=== PATIENT | female | born 1960 ===

== ENCOUNTER 2018-06-27 07:53 | Inpatient (IN) | payer MEDICAID ==
[2018-06-27 07:53] VITALS: BMI 25.8
--- NOTE | 2018-06-27 08:36 | C.PDOC ---
History Of Present Illness 57 y/o female,w/PMhx of MS, presents to the ER complaining of generalized weakness. Patient states that she has "no strength in legs." Patient reports that she was evaluated by her neurologist . Dr. Adler referred her to the ER for further evaluation. Denies having fever, chills, CP, and SOB. Time Seen by Provider: 06/27/18 08:20 Chief Complaint (Nursing): Lower Extremity Problem/Injury History Per: Patient History/Exam Limitations: no limitations Onset/Duration Of Symptoms: Days Current Symptoms Are (Timing): Still Present Severity: Moderate Past Medical History Reviewed: Historical Data, Nursing Documentation, Vital Signs Vital Signs: Last Vital Signs Temp 98.2 F 06/27/18 08:06 Pulse 79 06/27/18 08:06 Resp 18 06/27/18 08:06 BP 127/82 06/27/18 08:06 Pulse Ox 100 06/27/18 08:06 - Medical History PMH: Anemia, Gastritis, Hypercholesterolemia, Hypothyroidism, Multiple Sclerosis, TIA Denies: HIV, Chronic Kidney Disease Surgical History: Cholecystectomy Family History: States: No Known Family Hx - Social History Hx Alcohol Use: No Hx Substance Use: No - Immunization History Hx Tetanus Toxoid Vaccination: No Hx Influenza Vaccination: Yes Hx Pneumococcal Vaccination: No Review Of Systems Except As Marked, All Systems Reviewed And Found Negative. Constitutional: Positive for: Weakness. Negative for: Fever, Chills Cardiovascular: Negative for: Chest Pain Respiratory: Negative for: Shortness of Breath Neurological: Negative for: Numbness Physical Exam - Physical Exam Appears: Non-toxic, No Acute Distress Skin: Normal Color, Warm, Dry Head: Atraumatic, Normacephalic Eye(s): bilateral: Normal Inspection Nose: Normal Oral Mucosa: Moist Neck: Supple Chest: Symmetrical Cardiovascular: Rhythm Regular Respiratory: Normal Breath Sounds, No Rales, No Rhonchi, No Wheezing Gastrointestinal/Abdominal: Soft, No Tenderness, No Guarding, No Rebound Extremity: Normal ROM Neurological/Psych: Oriented x3, Normal Speech, Normal Motor, Normal Sensation ED Course And Treatment - Laboratory Results Result Diagrams: 06/27/18 08:44 06/27/18 08:44 O2 Sat by Pulse Oximetry: 100 (RA) Pulse Ox Interpretation: Normal Medical Decision Making Medical Decision Making: ro ms exacerbatio Plan: --Labs Updates: 8:30 AM Case discussed with . recommends ordering LP, MRI Brain and MRI- Cervical Thoracic Spine with and without contrast.accepted by dr posada. Disposition - Disposition Disposition: HOSPITALIZED Disposition Time: 11:45 Condition: STABLE - Clinical Impression Clinical Impression: Exacerbation of multiple sclerosis - Scribe Statement The provider has reviewed the documentation as recorded by the Scribe Cecilia Can Provider Attestation: All medical record entries made by the Scribe were at my direction and personally dictated by me. I have reviewed the chart and agree that the record accurately reflects my personal performance of the history, physical exam, medical decision making, and the department course for this patient. I have also personally directed, reviewed, and agree with the discharge instructions and disposition. Decision To Admit - Pt Status Changed To: Hospital Disposition Of: Inpatient - Admit Certification Admit to Inpatient:: After my assessment, the patient will require hospitalization for at least two midnights. This is because of the severity of symptoms shown, intensity of services needed, and/or the medical risk in this patient being treated as an outpatient. - InPatient: Physician Admission Certification: I certify that this patient requires 2 or more midnights of care for the following reason:: need neuro - . Bed Request Type: Telemetry Admitting Physician: Marichuy Saeed Patient Diagnosis: Exacerbation of multiple sclerosis
[2018-06-27 08:51] LABS: BASO % 0.4 % (0.0-2.0); EOS % 0.1 % (0.0-4.0); HEMOGLOBIN 13.8 g/dL (11.0-16.0); LYMPH # 0.4 K/uL (1.0-4.3); LYMPH % 12.1 % (20.0-40.0); MEAN CORPUSCULAR HGB CONC 33.7 g/dL (33.0-37.0); MEAN PLATELET VOLUME 8.1 fL (7.2-11.7); MONO # 0.4 K/uL (0.0-0.8); NEUT # 2.4 K/uL (1.8-7.0); NEUT % 75.4 % (50.0-75.0); NRBC % 0.1 % (0.0-2.0); RBC 4.3 Mil/uL (3.80-5.20); RED CELL DISTRIBUTION WIDTH 13.6 % (11.5-14.5); WHITE BLOOD COUNT 3.2 K/uL (4.8-10.8)
[2018-06-27 09:00] LABS: PROTHROMBIN TIME 10.9 SECONDS (9.7-12.2)
[2018-06-27 09:17] LABS: ALB/GLOB RATIO 1.6 (1.0-2.1); ALBUMIN 4.9 g/dL (3.5-5.0); ALT/SGPT 24 U/L (9-52); AST/SGOT 40 U/L (14-36); BLOOD UREA NITROGEN 9 mg/dL (7-17); CALCIUM 9.8 mg/dl (8.6-10.4); GFR NON-AFRICAN AMERICAN > 60
[2018-06-27] MEDS: Multiple Vitamins Oral Solution PO SCH (13:01)
[2018-06-27] MEDS ORDERED: Lidocaine 1% PF (5ml) Amp INJ ONE (15:11)
--- NOTE | 2018-06-27 15:22 | CP.PCM.CON ---
History of Present Illness - History of Present Illness History of Present Illness: Neurology Consultation Note: Consult requested by Dr. Saeed Mrs. Cherry Ortega is a 57-year-old woman who was previously diagnosed with Multiple Sclerosis and started on Tecfidera. She appears to be having some progressive fatigue and weakness, but no focal deficits. I saw her in the office for the first time yesterday and noted that she also had some difficulty with attention and memory. Review of Systems - Constitutional Constitutional: As Per HPI - EENT Eyes: absent: As Per HPI, Blind Spots, Blurred Vision, Change in Vision, Decreased Night Vision, Diplopia, Discharge, Dry Eye, Exophthalmos, Floaters, Irritation, Itchy Eyes, Loss of Peripheral Vision, Pain, Photophobia, Requires Corrective Lenses, Sees Flashes, Spots in Vision, Tunnel Vision, Other Visual Disturbances, Loss of Vision, Other Ears: absent: As Per HPI, Decreased Hearing, Ear Discharge, Ear Pain, Tinnitus, Abnormal Hearing, Disequilibrium, Dizziness, Other Nose/Mouth/Throat: absent: As Per HPI, Epistaxis, Nasal Congestion, Nasal Discharge, Nasal Obstruction, Nasal Trauma, Nose Pain, Post Nasal Drip, Sinus Pain, Sinus Pressure, Bleeding Gums, Change in Voice, Dental Pain, Dry Mouth, Dysphagia, Halitosis, Hoarsness, Lip Swelling, Mouth Lesions, Mouth Pain, Odynophagia, Sore Throat, Throat Swelling, Tongue Swelling, Facial Pain, Neck Pain, Neck Mass, Other - Cardiovascular Cardiovascular: absent: As Per HPI, Acrocyanosis, Chest Pain, Chest Pain at Rest, Chest Pain with Activity, Claudication, Diaphoresis, Dyspnea, Dyspnea on Exertion, Edema, Irregular Heart Rhythm, Pain Radiating to Arm/Neck/Jaw, Leg Edema, Leg Ulcers, Lightheadedness, Orthopnea, Palpitations, Paroxysmal Nocturnal Dyspnea, Pedal Edema, Radiating Pain, Rapid Heart Rate, Slow Heart Rate, Syncope, Other - Respiratory Respiratory: absent: As Per HPI, Cough, Dyspnea, Hemoptysis, Dyspnea on Exertion, Wheezing, Snoring, Stridor, Pain on Inspiration, Chest Congestion, Excessive Mucous Production, Change in Mucous Color, Pain with Coughing, Other - Gastrointestinal Gastrointestinal: absent: As Per HPI, Abdominal Pain, Belching, Bloating, Change in Bowel Habits, Change in Stool Character, Coffee Ground Emesis, Constipation, Cramping, Diarrhea, Dyspepsia, Dysphagia, Early Satiety, Excessive Flatus, Fecal Incontinence, Heartburn, Hematemesis, Hematochezia, Loose Stools, Melena, Nausea, Odynophagia, Temesmus, Vomiting, Other - Genitourinary Genitourinary: Urinary Incontinence - Musculoskeletal Musculoskeletal: As Per HPI - Integumentary Integumentary: absent: As Per HPI, Acne, Alopecia, Bleeding Lesions, Change in Hair, Change in Nails, Change in Pigmentation, Changing Lesions, Dry Skin, Erythema, Furuncle, Hirsutism, Lesions, New Lesions, Non-Healing Lesions, Photosensitivity, Pruritus, Rash, Skin Pain, Skin Ulcer, Sores, Striae, Swelling, Unusual Bruising, Wounds, Jaundice, Other - Neurological Neurological: As Per HPI - Psychiatric Psychiatric: absent: As Per HPI, Abnormal Sleep Pattern, Anhedonia, Anxiety, Auditory Hallucinations, Behavioral Changes, Change in Appetite, Change in Vanessa krystian, Confusion, Depression, Difficulty Concentrating, Hallucinations, Homicidal Ideation, Hopelessness, Irritability, Memory Loss, Mood Swings, Panic Attacks, Paranoia, Suicidal Ideation, Visual Hallucinations, Tactile Hallucinations, Other - Endocrine Endocrine: absent: As Per HPI, Change in Body Appearance, Change in Libido, Cold Intolorance, Deepening of Voice, Excessive Sweating, Fatigue, Flushing, Heat Intolorance, Increase in Ring/Shoe/Hat Size, Palpitations, Polydipsia, Polyphagia, Polyuria, Other - Hematologic/Lymphatic Hematologic: absent: As Per HPI, Easy Bleeding, Easy Bruising, Lymphadenopathy, Other Past Patient History - Past Medical History & Family History Past Medical History?: Yes - Past Social History Smoking Status: Never Smoked - CARDIAC Hx Hypercholesterolemia: Yes - PULMONARY Hx Respiratory Disorders: No - NEUROLOGICAL Hx Multiple Sclerosis: Yes Hx Transient Ischemic Attacks (TIA): Yes - HEENT Hx HEENT Problems: Yes Other/Comment: wears eye glasses - RENAL Hx Chronic Kidney Disease: No - ENDOCRINE/METABOLIC Hx Hypothyroidism: Yes - HEMATOLOGICAL/ONCOLOGICAL Hx Anemia: Yes Hx Human Immunodeficiency Virus (HIV): No - INTEGUMENTARY Hx Dermatological Problems: No - MUSCULOSKELETAL/RHEUMATOLOGICAL Hx Musculoskeletal Disorders: No Hx Falls: No - GASTROINTESTINAL Hx Gastritis: Yes - GENITOURINARY/GYNECOLOGICAL Hx Genitourinary Disorders: No - PSYCHIATRIC Hx Substance Use: No - SURGICAL HISTORY Hx Cholecystectomy: Yes - ANESTHESIA Hx Anesthesia: Yes Hx Anesthesia Reactions: No Hx Malignant Hyperthermia: No Meds Allergies/Adverse Reactions: Allergies Allergy/AdvReac Type Severity Reaction Status Date / Time No Known Allergies Allergy Verified 06/27/18 08:11 - Medications Medications: Current Medications Ascorbic Acid (Vitamin C 250 Mg Tab) 250 mg PO DAILY [facility] Last Admin: 06/27/18 13:01 Dose: Not Given Aspirin (Aspirin Chewable) 81 mg PO DAILY [facility] Last Admin: 06/27/18 13:01 Dose: Not Given Cyanocobalamin (Vitamin B12 1000 Mcg Tab) 1,000 mcg PO DAILY [facility] Last Admin: 06/27/18 13:01 Dose: Not Given Levothyroxine Sodium (Synthroid) 100 mcg PO DAILY@0630 [facility] Multivitamins/Vitamin C (Multi-Delyn Liquid) 5 ml PO DAILY [facility] Last Admin: 06/27/18 13:01 Dose: Not Given Physical Exam - Constitutional Appears: Well - Head Exam Head Exam: ATRAUMATIC, NORMAL INSPECTION, NORMOCEPHALIC - Eye Exam Eye Exam: EOMI, Normal appearance, PERRL Pupil Exam: NORMAL ACCOMODATION, PERRL - ENT Exam ENT Exam: Mucous Membranes Moist, Normal Exam - Neck Exam Neck exam: Positive for: Normal Inspection - Respiratory Exam Respiratory Exam: Clear to Auscultation Bilateral, NORMAL BREATHING PATTERN - Cardiovascular Exam Cardiovascular Exam: REGULAR RHYTHM, +S1, +S2 - GI/Abdominal Exam GI & Abdominal Exam: Normal Bowel Sounds, Soft. absent: Tenderness - Rectal Exam Rectal Exam: NORMAL INSPECTION - Exam Exam: Circumcision, NORMAL INSPECTION External exam: NORMAL EXTERNAL EXAM Speculum exam: NORMAL SPECULUM EXAM Bimanual exam: NORMAL BIMANUAL EXAM - Extremities Exam Extremities exam: Positive for: normal inspection - Back Exam Back exam: NORMAL INSPECTION - Neurological Exam Neurological exam: Abnormal Gait, Alert, CN II-XII Intact, Oriented x3, Reflexes Normal Additional comments: Attention is slightly impaired. Memory is intact. Trunkal ataxia noted, gait is wide-based. - Psychiatric Exam Psychiatric exam: Normal Affect, Normal Mood - Skin Skin Exam: Dry, Intact, Normal Color, Warm Results - Vital Signs Recent Vital Signs: Last Vital Signs Temp 97.3 F L 06/27/18 11:44 Pulse 62 06/27/18 11:44 Resp 20 06/27/18 11:44 BP 101/67 06/27/18 11:44 Pulse Ox 100 06/27/18 14:58 - Labs Result Diagrams: 06/27/18 08:44 06/27/18 08:44 Labs: Laboratory Results - last 24 hr 06/27/18 06/27/18 06/27/18 08:44 08:44 08:44 WBC 3.2 L RBC 4.30 Hgb 13.8 Hct 40.8 MCV 95.0 MCH 32.0 H MCHC 33.7 RDW 13.6 Plt Count 241 MPV 8.1 Neut % (Auto) 75.4 H Lymph % (Auto) 12.1 L [place] % (Auto) 12.0 H Eos % (Auto) 0.1 Baso % (Auto) 0.4 Neut # (Auto) 2.4 Lymph # (Auto) 0.4 L [place] # (Auto) 0.4 Eos # (Auto) 0.0 Baso # (Auto) 0.0 PT 10.9 INR 1.0 APTT 52 H Sodium 143 Potassium 4.5 Chloride 104 Carbon Dioxide 32 H Anion Gap 12 BUN 9 Creatinine 0.6 L Est GFR ( Amer) > 60 Est GFR (Non-Af Amer) > 60 Random Glucose 85 Calcium 9.8 Total Bilirubin 0.4 AST 40 H ALT 24 Alkaline Phosphatase 86 Total Protein 7.9 Albumin 4.9 Globulin 3.0 Albumin/Globulin Ratio 1.6 Assessment & Plan (1) Exacerbation of multiple sclerosis Assessment and Plan: Will obtain MRI of the brain and cervical spine with and without contrast to e valuate further prior to considering dose of Solumedrol. Will check CSF since the patient has never had a lumbar puncture before and she has never had evaluation for confirmatory testing. Thank you for this consultation. Status: Acute
[2018-06-27] MEDS ORDERED: Gadodiamide 287 mg/ml 20 ml IV ONE (17:58)
[2018-06-27 18:03] LABS: FLUID TYPE SPINAL FLUID
[2018-06-27 18:43] LABS: CSF VOLUME 2 mL (0-1)
[2018-06-27 18:44] LABS: CSF APPEARANCE CLEAR/COLORLESS (CLEAR)
[2018-06-28] MEDS: Levothyroxine 100 MCG TAB PO SCH (05:52)
[2018-06-28] MEDS: Multiple Vitamins Oral Solution PO SCH (10:14)
--- NOTE | 2018-06-28 11:49 | MRI ---
Date of service: 06/27/2018 PROCEDURE: MRI BRAIN WITH AND WITHOUT CONTRAST HISTORY: MS COMPARISON: None available. TECHNIQUE: Multiplanar, multisequence MR images of the brain were obtained with and without intravenous contrast enhancement. FINDINGS: HEMORRHAGE: None DWI: No evidence of an acute or early subacute infarction. BRAIN PARENCHYMA: Multiple bilateral cerebral long TR hyperintensities are rounder less than 1 cm size primarily, scattered at subcortical and periventricular white matter, primarily at the bilateral frontal and parietal lobes of the cerebrum with the brainstem and cerebellum uninvolved. Heterogeneous signal changes at the corpus callosum body and somewhat irregular callososeptal interface long TR hyperintensity are identified with the overall pattern concordant with clinical history of MS. No abnormal parenchymal enhancement is appreciated to suggest focal active plaque and there is no suspicious extra-axial enhancement identified. No mass effect or suspicious extra-axial collections identified and a dilated perivascular space identified in the inferior left basal ganglia. Craniocervical junction incidentally appears unremarkable. ENHANCEMENT: No abnormal intracranial enhancement. VENTRICLES: Unremarkable. No hydrocephalus. CRANIUM: Unremarkable. ORBITS: Grossly unremarkable. PARANASAL SINUSES/MASTOIDS: Clear VASCULAR SYSTEM: Skull base flow voids intact. OTHER FINDINGS: None . IMPRESSION: Multifocal white matter signal changes are appreciated which likely include the corpus callosum with clinical history of multiple sclerosis. If this diagnosis is not already proven, there is a very broad differential diagnosis and further clinical correlation is advised. No abnormal intracranial enhancement following intravenous gadolinium administration. Concordant preliminary report from [facility], 06/27/2018 6:55 p.m..
[2018-06-28] MEDS ORDERED: Sodium Chloride 0.9% 250 ML IV ONE (11:53)
[2018-06-28] MEDS ORDERED: Sodium Chloride 0.9% 500 ML IV ONE (12:13)
--- NOTE | 2018-06-28 12:20 | CP.PCM.PN ---
Subjective - Date & Time of Evaluation Date of Evaluation: 06/28/18 Time of Evaluation: 15:45 - Subjective Subjective: Neuro Follow-Up Note: Mrs. Cherry Pringle was evaluated this afternoon at bedside. She had episodes of bradycardia and hypotension today (she reports no associated symptoms). She also c/o persistent h/a that improved with Decadron IV and Depakote IV. She is eager to be d/c home. She is still pending MRIs of the spine with and without contrast as ordered by Dr. Adler yesterday. Currently denies dizziness, visual changes, chest pain, palpitations, sob, cough, abd pain, n/v/d. Objective - Vital Signs/Intake and Output Vital Signs (last 24 hours): Temp Pulse Resp BP Pulse Ox 97.8 F 68 20 99/52 L 96 06/28/18 08:47 06/28/18 08:47 06/28/18 08:47 06/28/18 08:47 06/28/18 08:47 Intake and Output: 06/28/18 06/28/18 06:59 18:59 Intake Total 200 Balance 200 - Medications Medications: Current Medications Acetaminophen (Tylenol 325mg Tab) 650 mg PO Q6 PRN PRN Reason: Headache Ascorbic Acid (Vitamin C 250 Mg Tab) 250 mg PO DAILY [facility] Last Admin: 06/28/18 10:14 Dose: 250 mg Aspirin (Aspirin Chewable) 81 mg PO DAILY [facility] Last Admin: 06/28/18 10:14 Dose: 81 mg Cyanocobalamin (Vitamin B12 1000 Mcg Tab) 1,000 mcg PO DAILY [facility] Last Admin: 06/28/18 10:14 Dose: 1,000 mcg Dexamethasone (Decadron Inj) 10 mg IVP ONCE ONE Stop: 06/28/18 12:17 Sodium Chloride (Sodium Chloride 0.9%) 500 mls @ 1,000 mls/hr IV .Q30M ONE Stop: 06/28/18 12:42 Levothyroxine Sodium (Synthroid) 100 mcg PO DAILY@0630 [facility] Last Admin: 06/28/18 05:52 Dose: 100 mcg Multivitamins/Vitamin C (Multi-Delyn Liquid) 5 ml PO DAILY [facility] Last Admin: 06/28/18 10:14 Dose: 5 ml - Labs Labs: 06/27/18 08:44 06/27/18 08:44 PT 10.9 SECONDS (9.7-12.2) 06/27/18 08:44 INR 1.0 06/27/18 08:44 APTT 52 SECONDS (21-34) H 06/27/18 08:44 - Constitutional Appears: Well, Non-toxic, No Acute Distress - Head Exam Head Exam: ATRAUMATIC, NORMAL INSPECTION, NORMOCEPHALIC - Eye Exam Eye Exam: EOMI, Normal appearance, PERRL Pupil Exam: NORMAL ACCOMODATION - ENT Exam ENT Exam: Mucous Membranes Moist, Normal Exam - Neck Exam Neck Exam: Full ROM, Normal Inspection - Respiratory Exam Respiratory Exam: NORMAL BREATHING PATTERN - Cardiovascular Exam Cardiovascular Exam: REGULAR RHYTHM (HR 72 on tele mx during exam; BP 123/72) - Extremities Exam Extremities Exam: Full ROM, Normal Inspection. absent: Calf Tenderness, Pedal Edema - Back Exam Back Exam: Full ROM, NORMAL INSPECTION - Neurological Exam Neurological Exam: Alert, Awake, CN II-XII Intact, Normal Gait, Oriented x3, Reflexes Normal Neuro motor strength exam: Left Upper Extremity: 5, Right Upper Extremity: 5, Left Lower Extremity: 5, Right Lower Extremity: 5 Additional comments: Speech clear, fluid FROM and equal strength b/l No motor or sensory deficits No focal neuro deficits - Psychiatric Exam Psychiatric exam: Normal Affect, Normal Mood - Skin Skin Exam: Normal Color Assessment and Plan (1) Exacerbation of multiple sclerosis Assessment & Plan: Imaging reviewed: -MRI Brain (06/27/18): Multifocal white matter signal changes are appreciated which likely include the corpus callosum with clinical history of multiple sclerosis. If this diagnosis is not already proven, there is a very broad differential diagnosis and further clinical correlation is advised. No abnormal intracranial enhancement following intravenous gadolinium administration. Mrs. Cherry Pringle is doing well neurologically post-LP. She had a persistent h/a this morning and afternoon which we treated; she admits to some resolution with the Decardon and Valproic Acid. She was noted to be hypotensive (SBP 90's) and bradycardic (HR 30's) on and off today, though pt denied any dizziness, visual changes, diaphoresis, etc. Primary consulted cardiology to evaluate this afternoon. -Decadron 10 mg IV x1 dose and Valproic Acid 500mg IV x1 dose for persistent h/a given earlier today. -NS 500 ml IV Bolus x1 given earlier for hypotension -Pending results of CSF specimen collected yesterday during LP---october f/u as outpatient with neuro for results. -MRIs of the spine can be done as outpatient if it cannot be done prior to d/c. -Manage and treat other medical issues per primary team (asymptomatic hypoten agustín and bradycardia). Neurologically, the pt is stable and cleared for d/c. Follow up with Dr. Adler in the office on 06/30/18, to discuss results and for medication refill. Case discussed with Dr. Adler Status: Acute
[2018-06-28] MEDS ORDERED: Valproate 500 MG in Sodium Chloride 0.9% 100 ML IVPB ONE (13:00)
[2018-06-28] MEDS ORDERED: Sodium Chloride 0.9% 1,000 ML IV SCH (13:00)
[2018-06-28] MEDS ORDERED: Apap-Butalbital-Caffeine 325-50-40mg Tab PO ONE (19:30)
[2018-06-29] MEDS: Levothyroxine 100 MCG TAB PO SCH (06:06)
--- NOTE | 2018-06-29 06:32 | HP ---
The patient was seen and examined at the bedside on 06/28/2018. CHIEF COMPLAINT: Lower extremity weakness and problem. HISTORY OF PRESENT ILLNESS: The patient is a 57-year-old female with past medical history of MS, came to the emergency department complaining of generalized weakness. The patient states she has no strenth in her legs. The patient reports that she was evaluated by her neurologist, Dr. Jay Adler, who referred her to ER for further evaluation and denies having fever or chills. No chest pain. No shortness of breath. No nausea, vomiting, diarrhea. No blurring of vision. PAST MEDICAL HISTORY: Anemia, gastritis, hypercholesterolemia, hypothyroidism, multiple sclerosis, TIA, history of cholecystectomy. FAMILY HISTORY: Father and mother, noncontributory. HABITS: No alcohol. No substance abuse. REVIEW OF SYSTEMS: The patient was seen and examined at bedside in her room in the late evening, still complaining about headache. No fever, no chills. No hematuria or hematochezia. Today, the patient had episode of bradycardia and hypotension. Cardiology consult called. Discussion done with the daughter. No shortness of breath. LABORATORY DATA: White blood cell 3.2, hemoglobin 13.8, hematocrit 40.8, platelets 241. Sodium 143, potassium 4.5, BUN 9, creatinine 0.6, glucose 183, AST 40. ASSESSMENT AND PLAN: The patient is a 57-year-old female with anemia, hyperglycemia, abnormal liver function test, and exacerbation of multiple sclerosis, lumbar puncture done by Dr. Jay Adler. Brain MRI done. In the afternoon, the patient developed bradycardia and hypotension and seen by nurse practitioner, Savita , but improved after that. Decadron and Depakote was given. The patient has persistent headache. Did want to go home, but I need cardiologic evaluation and discussion done with the patient and the patient's daughter. Got Decadron. The patient had history of anemia and gastritis, hypercholesterolemia, hypothyroidism, multiple sclerosis, transient ischemic attack, history of cholecystectomy. Cardiology and Neurology consult called. Repeat labs. We will follow up. Marichuy Saeed MD [id number]
[2018-06-29 07:57] LABS: HEMOGLOBIN 13.3 g/dL (11.0-16.0); MEAN CELL VOLUME 94.9 fL (81.0-99.0); MEAN CORPUSCULAR HGB CONC 32.6 g/dL (33.0-37.0); MEAN PLATELET VOLUME 8.4 fL (7.2-11.7); RBC 4.31 Mil/uL (3.80-5.20); RED CELL DISTRIBUTION WIDTH 13.4 % (11.5-14.5)
[2018-06-29 07:58] LABS: WHITE BLOOD COUNT 7.2 K/uL (4.8-10.8)
[2018-06-29 08:06] LABS: IRON 92 ug/dL (37-170)
[2018-06-29 08:14] LABS: BLOOD UREA NITROGEN 13 mg/dL (7-17); CALCIUM 9.4 mg/dl (8.6-10.4); GFR NON-AFRICAN AMERICAN > 60; HDL CHOLESTEROL 81 mg/dL (30-70)
[2018-06-29 08:29] LABS: LDL CHOLESTEROL 109 mg/dL (0-129)
[2018-06-29 08:45] LABS: % IRON SATURATION 27 (20-55); TOTAL IRON BINDING CAPACITY 336 ug/dL (250-450)
[2018-06-29 09:14] LABS: FOLATE 6.9 ng/mL
[2018-06-29] MEDS: Multiple Vitamins Oral Solution PO SCH (09:50)
--- NOTE | 2018-06-29 22:00 | CP.PCM.CON ---
History of Present Illness - History of Present Illness History of Present Illness: 57 F with MS experienced bradycardia and dizziness now resolved Check TSH Check ECHO and stress test r/o Ischemia Tests ordered 57 y/o female,w/PMhx of MS, presents to the ER complaining of generalized weakness. Patient states that she has "no strength in legs." Patient reports that she was evaluated by her neurologist . Dr. Adler referred her to the ER for further evaluation. Denies having fever, chills, CP, and SOB. Chief Complaint (Nursing): Lower Extremity Problem/Injury History Per: Patient History/Exam Limitations: no limitations Onset/Duration Of Symptoms: Days Current Symptoms Are (Timing): Still Present Severity: Moderate - Medical History PMH: Anemia, Gastritis, Hypercholesterolemia, Hypothyroidism, Multiple Sclero sis, TIA Denies: HIV, Chronic Kidney Disease Surgical History: Cholecystectomy Family History: States: No Known Family Hx - Social History Hx Alcohol Use: No Hx Substance Use: No - Immunization History Hx Tetanus Toxoid Vaccination: No Hx Influenza Vaccination: Yes Hx Pneumococcal Vaccination: No Review Of Systems Except As Marked, All Systems Reviewed And Found Negative. Constitutional: Positive for: Weakness. Negative for: Fever, Chills Cardiovascular: Negative for: Chest Pain Respiratory: Negative for: Shortness of Breath Neurological: Negative for: Numbness Physical Exam - Physical Exam Appears: Non-toxic, No Acute Distress Skin: Normal Color, Warm, Dry Head: Atraumatic, Normacephalic Eye(s): bilateral: Normal Inspection Nose: Normal Oral Mucosa: Moist Neck: Supple Chest: Symmetrical Cardiovascular: Rhythm Regular Respiratory: Normal Breath Sounds, No Rales, No Rhonchi, No Wheezing Gastrointestinal/Abdominal: Soft, No Tenderness, No Guarding, No Rebound Extremity: Normal ROM Neurological/Psych: Oriented x3, Normal Speech, Normal Motor, Normal Sensation Past Patient History - Past Medical History & Family History Past Medical History?: Yes - Past Social History Smoking Status: Never Smoked - CARDIAC Hx Hypercholesterolemia: Yes - PULMONARY Hx Respiratory Disorders: No - NEUROLOGICAL Hx Multiple Sclerosis: Yes Hx Transient Ischemic Attacks (TIA): Yes - HEENT Hx HEENT Problems: Yes Other/Comment: wears eye glasses - RENAL Hx Chronic Kidney Disease: No - ENDOCRINE/METABOLIC Hx Hypothyroidism: Yes - HEMATOLOGICAL/ONCOLOGICAL Hx Anemia: Yes Hx Human Immunodeficiency Virus (HIV): No - INTEGUMENTARY Hx Dermatological Problems: No - MUSCULOSKELETAL/RHEUMATOLOGICAL Hx Musculoskeletal Disorders: No Hx Falls: No - GASTROINTESTINAL Hx Gastritis: Yes - GENITOURINARY/GYNECOLOGICAL Hx Genitourinary Disorders: No - PSYCHIATRIC Hx Substance Use: No - SURGICAL HISTORY Hx Cholecystectomy: Yes - ANESTHESIA Hx Anesthesia: Yes Hx Anesthesia Reactions: No Hx Malignant Hyperthermia: No Meds Allergies/Adverse Reactions: Allergies Allergy/AdvReac Type Severity Reaction Status Date / Time No Known Allergies Allergy Verified 06/27/18 08:11 - Medications Medications: Current Medications Acetaminophen (Tylenol 325mg Tab) 650 mg PO Q6 PRN PRN Reason: Headache Last Admin: 06/29/18 09:49 Dose: 650 mg Ascorbic Acid (Vitamin C 250 Mg Tab) 250 mg PO DAILY [facility] Last Admin: 06/29/18 09:50 Dose: 250 mg Aspirin (Aspirin Chewable) 81 mg PO DAILY [facility] Last Admin: 06/29/18 09:50 Dose: 81 mg Cyanocobalamin (Vitamin B12 1000 Mcg Tab) 1,000 mcg PO DAILY [facility] Last Admin: 06/29/18 09:50 Dose: 1,000 mcg Levothyroxine Sodium (Synthroid) 100 mcg PO DAILY@0630 [facility] Last Admin: 06/29/18 06:06 Dose: 100 mcg Multivitamins/Vitamin C (Multi-Delyn Liquid) 5 ml PO DAILY [facility] Last Admin: 06/29/18 09:50 Dose: 5 ml Results - Vital Signs Recent Vital Signs: Last Vital Signs Temp 97.9 F 06/29/18 15:00 Pulse 70 06/29/18 20:15 Resp 20 06/29/18 15:00 BP 100/60 06/29/18 15:00 Pulse Ox 100 06/29/18 15:00 - Labs Result Diagrams: 06/29/18 07:49 06/29/18 07:49 Labs: Laboratory Results - last 24 hr 06/29/18 06/29/18 06/29/18 07:49 07:49 07:49 WBC 7.2 D RBC 4.31 Hgb 13.3 Hct 40.9 MCV 94.9 MCH 31.0 MCHC 32.6 L RDW 13.4 Plt Count 245 MPV 8.4 Sodium 137 Potassium 4.8 Chloride 102 Carbon Dioxide 28 Anion Gap 12 BUN 13 Creatinine 0.6 L Est GFR ( Amer) > 60 Est GFR (Non-Af Amer) > 60 Random Glucose 89 Hemoglobin A1c Calcium 9.4 Iron 92 TIBC 336 % Saturation 27 Triglycerides 58 Cholesterol 199 LDL Cholesterol Direct 109 HDL Cholesterol 81 H Vitamin B12 > 1000 H Folate 6.9 TSH 3rd Generation 0.34 L 06/29/18 07:49 WBC RBC Hgb Hct MCV MCH MCHC RDW Plt Count MPV Sodium Potassium Chloride Carbon Dioxide Anion Gap BUN Creatinine Est GFR ( Amer) Est GFR (Non-Af Amer) Random Glucose Hemoglobin A1c 5.4 Calcium Iron TIBC % Saturation Triglycerides Cholesterol LDL Cholesterol Direct HDL Cholesterol Vitamin B12 Folate TSH 3rd Generation Assessment & Plan - Assessment and Plan (Free Text) Assessment: 57 F with episodes of bradycardia and chest pain Check ECHO and stress test
--- NOTE | 2018-06-30 04:12 | PN ---
DATE: 06/29/2018 SUBJECTIVE: The patient is 57-year-old female. The patient was seen and examined at the bedside on 06/29/2018. Looking comfortable. No fever, no chills. No hematuria, no hematochezia. No swelling of the legs. No chest pain. No palpitation. No headache, no dizziness. Cleared by the neurologist. Has episode of bradycardia and hypotension. Cardiology consult called. Discussion done with Dr. Danielle and nurse practitioner. PHYSICAL EXAMINATION: VITAL SIGNS: Temperature 97.9, pulse 70, respiratory rate 20, and blood pressure 100/50. Pulse oximetry 100. HEENT: Head: Normocephalic and atraumatic. Eyes: PERRLA. Extraocular muscles are intact. Conjunctivae clear. Nose patent. Mucous membranes are moist. NECK: Supple. No carotid bruit, JVD, or thyromegaly. CHEST: Bilaterally symmetrical. HEART: S1 and S2 positive. LUNGS: Clear to auscultation. ABDOMEN: Soft. Bowel sounds present. No organomegaly. EXTREMITIES: No edema, no cyanosis. NEUROLOGIC: The patient is awake and alert. Moving all four extremities. No focal deficits. LABORATORY DATA: White blood cell 7.3, hemoglobin 13.3, hematocrit 40.9, and platelets 241. Sodium 137, potassium 4.8, BUN 13, creatinine 0.6, and glucose 89. ASSESSMENT AND PLAN: Ms. Christa Pringle is a lady with history of multiple sclerosis, came in [facility] with exacerbation of multiple sclerosis. Lumbar puncture is done. Cleared by neurologist. The patient has episode of bradycardia, dizziness, hypotension resolved. Cardiology consult called. They wanted to do TSH, echocardiogram, and stress test to rule out ischemia. Tests ordered. The patient has history of transient ischemia attack, history of anemia, nephritis, and cholecystitis. Gastrointestinal and deep venous thrombosis prophylaxis. Seen by Dr. Alejandro Danielle. The patient is cleared for discharge by a neurologist. Generator Operator will repeat laboratories. We will follow up. Marichuy Saeed MD [email or web address]
[2018-06-30] MEDS: Levothyroxine 100 MCG TAB PO SCH (05:30)
[2018-06-30] MEDS ORDERED: Caffeine Citrated **INJ** 20 MG/ML IV ONE (07:37)
[2018-06-30] MEDS ORDERED: Apap-Butalbital-Caffeine 325-50-40mg Tab PO ONE (09:00)
[2018-06-30] MEDS: Multiple Vitamins Oral Solution PO SCH (12:34)
[2018-06-30] MEDS ORDERED: Apap-Butalbital-Caffeine 325-50-40mg Tab PO STA (15:33)
[2018-06-30 21:00] LABS: IGG INDEX CSF 0.58 (<0.66); SYNTHESIS RATE IGG CSF 0.9 mg/24 h (-9.9-3.3)
[2018-06-30] MEDS: Apap-Butalbital-Caffeine 325-50-40mg Tab PO PRN (23:36)
--- NOTE | 2018-07-01 02:20 | PN ---
DATE: 07/01/2018 SUBJECTIVE: The patient is a 57-year-old female. She is admitted in [facility] with MS exacerbation. The patient was seen and examined at bedside on 07/01/2018, early in the morning. Looking comfortable. No fever. No chills. No hematuria. No hematochezia. No swelling of the legs. No chest pain. No palpitation. PHYSICAL EXAMINATION: VITAL SIGNS: Temperature 97.7, pulse 75, blood pressure 132/71, and respiratory rate 20. HEENT: Head: Normocephalic and atraumatic. Eyes: PERRLA. Extraocular muscles intact. Conjunctivae clear. Nose patent. NECK: Supple. No carotid bruit, JVD, or thyromegaly. CHEST: Bilaterally symmetrical. HEART: S1 and S2 positive. LUNGS: Clear to auscultation. ABDOMEN: Soft. Bowel sounds present. No organomegaly. EXTREMITIES: No edema. No cyanosis. NEUROLOGIC: The patient is awake and alert. Moving all four extremities. No focal deficits. MEDICATIONS: Reviewed by me , multivitamin, Synthroid, Tylenol, B12, and vitamin C. LABORATORY DATA: We do not have recent labs today, but I reviewed old labs. ASSESSMENT AND PLAN: Ms. Christa Pringle is a 57-year-old lady with history of leukopenia, hyperglycemia, high C-reactive protein, came to [facility] with multiple sclerosis exacerbation. Lumbar puncture done by the neurologist. Had episode of bradycardia and hypotension. Cardiology consult called with Dr. Danielle. He saw the patient. According to him, bradycardia and hypotension resolved. He wanted to do thyroid stimulating hormone, echocardiogram, and stress test to rule out ischemia. Gastrointestinal and deep venous thrombosis prophylaxis. Repeat laboratories. We will follow up. Marichuy Saeed MD HECTOR
[2018-07-01] MEDS: Levothyroxine 100 MCG TAB PO SCH (06:41)
[2018-07-01] MEDS: Multiple Vitamins Oral Solution PO SCH (09:05)
[2018-07-01] MEDS: Apap-Butalbital-Caffeine 325-50-40mg Tab PO PRN ×2 (09:35→22:23)
--- NOTE | 2018-07-01 12:54 | PCM.PROC ---
Procedures Attestation:: I certify that I have explained the specified Operation(s) or Procedure(s), risks, benefits and reasonable alternatives to the Patient and/or other person responsible. The opportunity was given to ask questions and all questions answered - Lumbar Puncture Consent Obtained: Written Consent Time Out Performed: Yes Patient Position: Upright Skin Prep: Povidone-Iodine 1% Local Anesthetic Used: Lidocaine 1% Spinal Needle Gauge: 22G Interspace Used: L3-L4 Fluid Initially Obtained: Clear Complications: None
[2018-07-01] MEDS ORDERED: Magnesium Oxide 400 mg Tab UD PO ONE (13:22)
--- NOTE | 2018-07-01 17:06 | CARD ---
APPROVED REPORT Date of service: 06/30/2018 EXAM: Two-dimensional and M-mode echocardiogram with Doppler and color Doppler. Other Information Quality : Rhythm : Bradycardia INDICATION Dizziness and Vertigo Syncope 2D DIMENSIONS IVSd0.7 (0.7-1.1cm)Aortic Root (2D)3.0 (2.0-3.7cm) LVDd4.3 (3.9-5.9cm)PWd0.7 (0.7-1.1cm) LA [id number] (18-58mL)LVDs2.2 (2.5-4.0cm) FS (%) 48.4 %LVEF (%)75.0 (>50%) LVEF (Bailey's)60 %IVC0.00 cm M-Mode DIMENSIONS Left Atrium (MM)2.59 (2.5-4.0cm)IVSd0.54 (0.7-1.1cm) Aortic Root2.96 (2.2-3.7cm)LVDd4.51 (4.0-5.6cm) Aortic Cusp Exc.1.58 (1.5-2.0cm)PWd0.54 (0.7-1.1cm) FS (%) 47 %LVDs2.40 (2.0-3.8cm) TAPSE13.36 cmLVEF (%)74 (>50%) Mitral Valve MV E Wphrrmrn35.9cm/sMV A Vbqhjzvo22.5cm/sE/A ratio1.6 TDI Lateral E' Peak V15.19cm/sMedial E' Peak V8.80cm/sE/Lateral E'5.3 E/Medial E'9.2 Tricuspid Valve TR Peak Uwqcagrr374gq/sTR Peak Gr.[id number] LEFT VENTRICLE The left ventricle is normal size. There is normal left ventricular wall thickness. Left ventricle systolic function is normal. The Ejection Fraction is 55-60%. There is normal LV segmental wall motion. Tissue Doppler imaging reveals abnormal left ventricular diastolic dysfunction. RIGHT VENTRICLE The right ventricle is normal size. There is normal right ventricular wall thickness. The right ventricular systolic function is normal. ATRIA The left atrium size is normal. The right atrium size is normal. The interatrial septum is intact with no evidence for an atrial septal defect. AORTIC VALVE The aortic valve is normal in structure. No aortic regurgitation is present. There is no aortic valvular stenosis. There is no aortic valvular vegetation. MITRAL VALVE The mitral valve is normal in structure. There is no evidence of mitral valve prolapse. There is no mitral valve stenosis. There is no mitral valve regurgitation noted. TRICUSPID VALVE The tricuspid valve is normal in structure. There is mild tricuspid regurgitation. Right ventricular systolic pressure is estimated at 30-40 mmHg. There is mild pulmonary hypertension. PULMONIC VALVE The pulmonic valve is not well visualized. There is mild pulmonic valvular regurgitation. GREAT VESSELS The aortic root is normal in size. PERICARDIAL EFFUSION There is no significant pericardial effusion. <Conclusion> Left ventricle systolic function is normal. The Ejection Fraction is 55-60%. Diastolic dysfunction. There is no mitral valve regurgitation noted. There is mild tricuspid regurgitation. There is mild pulmonary hypertension. There is mild pulmonic valvular regurgitation.
--- NOTE | 2018-07-01 20:02 | CP.PCM.PN ---
Subjective - Date & Time of Evaluation Date of Evaluation: 07/01/18 Time of Evaluation: 16:20 - Subjective Subjective: Patient seen and evaluated Denies chest pain and dyspnea Awaiting stress test on Tuesday Review Of Systems Except As Marked, All Systems Reviewed And Found Negative. Constitutional: Positive for: Weakness. Negative for: Fever, Chills Cardiovascular: Negative for: Chest Pain Respiratory: Negative for: Shortness of Breath Neurological: Negative for: Numbness Physical Exam - Physical Exam Appears: Non-toxic, No Acute Distress Skin: Normal Color, Warm, Dry Head: Atraumatic, Normacephalic Eye(s): bilateral: Normal Inspection Nose: Normal Oral Mucosa: Moist Neck: Supple Chest: Symmetrical Cardiovascular: Rhythm Regular Respiratory: Normal Breath Sounds, No Rales, No Rhonchi, No Wheezing Gastrointestinal/Abdominal: Soft, No Tenderness, No Guarding, No Rebound Extremity: Normal ROM Neurological/Psych: Oriented x3, Normal Speech, Normal Motor, Normal Sensation Objective - Vital Signs/Intake and Output Vital Signs (last 24 hours): Temp Pulse Resp BP Pulse Ox 98.2 F 75 20 105/63 95 07/01/18 15:00 07/01/18 16:18 07/01/18 15:00 07/01/18 15:00 07/01/18 15:00 Intake and Output: 07/01/18 07/02/18 18:59 06:59 Intake Total 480 Balance 480 - Medications Medications: Current Medications Acetaminophen (Tylenol 325mg Tab) 650 mg PO Q6 PRN PRN Reason: Headache Last Admin: 07/01/18 17:50 Dose: 650 mg Acetaminophen/Butalbital/Caffeine (Fioricet) 1 tab PO BID PRN PRN Reason: headache Last Admin: 07/01/18 09:35 Dose: 1 tab Ascorbic Acid (Vitamin C 250 Mg Tab) 250 mg PO DAILY [facility] Last Admin: 07/01/18 09:05 Dose: 250 mg Aspirin (Aspirin Chewable) 81 mg PO DAILY [facility] Last Admin: 07/01/18 09:05 Dose: 81 mg Cyanocobalamin (Vitamin B12 1000 Mcg Tab) 1,000 mcg PO DAILY [facility] Last Admin: 07/01/18 09:05 Dose: 1,000 mcg Levothyroxine Sodium (Synthroid) 100 mcg PO DAILY@0630 [facility] Last Admin: 07/01/18 06:41 Dose: 100 mcg Multivitamins/Vitamin C (Multi-Delyn Liquid) 5 ml PO DAILY [facility] Last Admin: 07/01/18 09:05 Dose: 5 ml - Labs Labs: 06/29/18 07:49 06/29/18 07:49 PT 10.9 SECONDS (9.7-12.2) 06/27/18 08:44 INR 1.0 06/27/18 08:44 APTT 52 SECONDS (21-34) H 06/27/18 08:44 Assessment and Plan - Assessment and Plan (Free Text) Assessment: Symptomatic bradycardia ECHO: Normal EF Awaiting stress test on Tuesday
--- NOTE | 2018-07-02 01:38 | PN ---
DATE: 07/01/2018 SUBJECTIVE: The patient is 57 years old female. The patient was seen and examined on the bedside on 07/01/2018, looking comfortable. No fever. No chills. No hematuria. No hematochezia. No swelling of the legs. No chest pain. No palpitation. No headache. No dizziness. PHYSICAL EXAMINATION: VITAL SIGNS: Temperature 98.2, pulse 75, respiratory rate 20, blood pressure 106/63, pulse oximetry 95. HEENT: Head is normocephalic and atraumatic. Eyes: PERRLA. Extraocular movements are intact. Conjunctivae clear. Nose patent. NECK: Supple. No carotid bruits. No JVD or thyromegaly. CHEST: Bilaterally symmetrical. HEART: S1 and S2 positive. LUNGS: Clear to auscultation. ABDOMEN: Soft. Bowel sounds present. No organomegaly. EXTREMITIES: No edema. No cyanosis. NEUROLOGIC: The patient is awake, alert. Moving all four extremities. No focal deficit. MEDICATIONS: Tylenol, Fioricet, vitamin C, aspirin, vitamin B12, Synthroid, multivitamins. LABORATORY DATA: We do not have recent labs today, but I reviewed old labs. ASSESSMENT AND PLAN: Ms. Christa Pringle is a 57 years old lady with symptomatic bradycardia. Echocardiography shows normal ejection fraction. I am waiting for stress test on as per Dr. Danielle. Discussion done with Dr. Danielle. The patient has history of multiple sclerosis, headache. Neurologist is on the case. Repeat labs. We will follow up. Marichuy Saeed MD
[2018-07-02] MEDS: Levothyroxine 100 MCG TAB PO SCH (06:09)
[2018-07-02 08:55] LABS: BASO % 0.2 % (0.0-2.0); EOS % 0.1 % (0.0-4.0); HEMOGLOBIN 13.5 g/dL (11.0-16.0); LYMPH # 0.4 K/uL (1.0-4.3); LYMPH % 7.1 % (20.0-40.0); MEAN CELL VOLUME 94.6 fL (81.0-99.0); MEAN CORPUSCULAR HEMOGLOBIN 32.1 pg (27.0-31.0); MEAN CORPUSCULAR HGB CONC 33.9 g/dL (33.0-37.0); MEAN PLATELET VOLUME 8.7 fL (7.2-11.7); MONO # 0.4 K/uL (0.0-0.8); MONO % 7.3 % (0.0-10.0); NEUT # 4.3 K/uL (1.8-7.0); NEUT % 85.3 % (50.0-75.0); PLATELET COUNT 249 K/uL (130-400); RED CELL DISTRIBUTION WIDTH 13.4 % (11.5-14.5); WHITE BLOOD COUNT 5.1 K/uL (4.8-10.8)
[2018-07-02 09:13] LABS: ALB/GLOB RATIO 1.5 (1.0-2.1); ALBUMIN 4.4 g/dL (3.5-5.0); ALT/SGPT 42 U/L (9-52); AST/SGOT 43 U/L (14-36); BLOOD UREA NITROGEN 12 mg/dL (7-17); CALCIUM 9.6 mg/dl (8.6-10.4); GFR NON-AFRICAN AMERICAN > 60
[2018-07-02] MEDS: Multiple Vitamins Oral Solution PO SCH (09:16)
[2018-07-02 11:04] LABS: BANDS 3 % (0-2); LYMPHOCYTE 6 % (20-40); MONOCYTE 6 % (0-10); NEUTROPHIL 85 % (50-75); PLATELET ESTIMATE NORMAL (NORMAL); TOTAL CELLS COUNTED 100
[2018-07-02] MEDS: Apap-Butalbital-Caffeine 325-50-40mg Tab PO PRN (17:59)
--- NOTE | 2018-07-02 23:24 | CP.PCM.PN ---
Subjective - Date & Time of Evaluation Date of Evaluation: 07/02/18 Time of Evaluation: 09:20 - Subjective Subjective: Patient for stress test in am Objective - Vital Signs/Intake and Output Vital Signs (last 24 hours): Temp Pulse Resp BP Pulse Ox 97.7 F 72 20 113/70 100 07/02/18 15:00 07/02/18 22:23 07/02/18 15:00 07/02/18 15:00 07/02/18 15:00 Intake and Output: 07/02/18 07/03/18 18:59 06:59 Intake Total 480 300 Balance 480 300 - Medications Medications: Current Medications Acetaminophen (Tylenol 325mg Tab) 650 mg PO Q6 PRN PRN Reason: Headache Last Admin: 07/01/18 17:50 Dose: 650 mg Acetaminophen/Butalbital/Caffeine (Fioricet) 1 tab PO BID PRN PRN Reason: headache Last Admin: 07/02/18 17:59 Dose: 1 tab Ascorbic Acid (Vitamin C 250 Mg Tab) 250 mg PO DAILY [facility] Last Admin: 07/02/18 09:16 Dose: 250 mg Aspirin (Aspirin Chewable) 81 mg PO DAILY [facility] Last Admin: 07/02/18 09:16 Dose: 81 mg Cyanocobalamin (Vitamin B12 1000 Mcg Tab) 1,000 mcg PO DAILY [facility] Last Admin: 07/02/18 09:16 Dose: 1,000 mcg Levothyroxine Sodium (Synthroid) 100 mcg PO DAILY@0630 [facility] Last Admin: 07/02/18 06:09 Dose: 100 mcg Multivitamins/Vitamin C (Multi-Delyn Liquid) 5 ml PO DAILY [facility] Last Admin: 07/02/18 09:16 Dose: 5 ml - Labs Labs: 07/02/18 08:38 07/02/18 08:38 PT 10.9 SECONDS (9.7-12.2) 06/27/18 08:44 INR 1.0 06/27/18 08:44 APTT 52 SECONDS (21-34) H 06/27/18 08:44
[2018-07-03] MEDS: Levothyroxine 100 MCG TAB PO SCH (06:03)
[2018-07-03] MEDS ORDERED: Caffeine Citrated **INJ** 20 MG/ML IV ONE (07:56)
[2018-07-03 08:15] VITALS: RESP 20
--- NOTE | 2018-07-03 12:33 | PN ---
DATE: 07/02/2018 SUBJECTIVE: The patient was seen and examined on bedside on 07/02/2018 and looking comfortable. No fever. No chills. No hematuria. No hematochezia. No headache. No dizziness. No chest pain. No palpitation at this moment, having headache once in a while. PHYSICAL EXAMINATION: VITAL SIGNS: Temperature 97.7, pulse 72, respiratory rate 20, blood pressure 113/70, pulse oximetry 100. HEENT: Head is normocephalic and atraumatic. Eyes: PERRLA. Extraocular movements are intact. Conjunctivae clear. Nose patent. Mucous membrane moist. NECK: Supple. No carotid bruits. No JVD or thyromegaly. CHEST: Bilaterally symmetrical. HEART: S1 and S2 positive. LUNGS: Clear to auscultation. ABDOMEN: Soft. Bowel sounds present. No organomegaly. EXTREMITIES: No edema. No cyanosis. NEUROLOGIC: The patient is awake, alert. Moving all four extremities. No focal deficit. MEDICATIONS: Fioricet, ascorbic acid, aspirin, vitamin B12, levothyroxine, multivitamins. LABORATORY DATA: White blood cells 5.1, hemoglobin 13.5, hematocrit 39.7, platelets 249. Sodium 138, potassium 5, BUN 12, creatinine 0.6, glucose 118. ASSESSMENT AND PLAN: Ms. Christa Pringle is a 57 years old lady with multiple sclerosis, migraine, hypothyroidism, hyperglycemia, has history of bradycardia with hypotension, seen by the bill of materials clerk, Dr. Danielle, planning for stress test on Tuesday. The patient has history of leukopenia, improved, history of abnormal liver function tests, rule out hyperthyroidism. Neurologist is on the case. Lumbar puncture done. Results are pending. If stress test is within normal limits, we will discharge the patient. Meanwhile, continue present treatment. Repeat labs. We will follow up. Marichuy Saeed MD
[2018-07-03] MEDS: Multiple Vitamins Oral Solution PO SCH (14:21)
[2018-07-03 16:54] VITALS: O2SAT 95
[2018-07-03] MEDS: Apap-Butalbital-Caffeine 325-50-40mg Tab PO PRN (21:23)
--- NOTE | 2018-07-03 22:01 | CP.PCM.PN ---
Subjective - Date & Time of Evaluation Date of Evaluation: 07/03/18 Time of Evaluation: 18:25 - Subjective Subjective: Patient s/p Stress test Stress test: Normal and normal EF Cardiology point of view cleared for discharge F/U PMD as out patient Objective - Vital Signs/Intake and Output Vital Signs (last 24 hours): Temp Pulse Resp BP Pulse Ox 98 F 86 20 104/68 95 07/03/18 17:27 07/03/18 17:31 07/03/18 17:27 07/03/18 17:27 07/03/18 17:27 Intake and Output: 07/03/18 07/04/18 18:59 06:59 Intake Total 480 Balance 480 - Medications Medications: Current Medications Acetaminophen (Tylenol 325mg Tab) 650 mg PO Q6 PRN PRN Reason: Headache Last Admin: 07/01/18 17:50 Dose: 650 mg Acetaminophen/Butalbital/Caffeine (Fioricet) 1 tab PO BID PRN PRN Reason: headache Last Admin: 07/03/18 21:23 Dose: 1 tab Ascorbic Acid (Vitamin C 250 Mg Tab) 250 mg PO DAILY [facility] Last Admin: 07/03/18 14:20 Dose: 250 mg Aspirin (Aspirin Chewable) 81 mg PO DAILY [facility] Last Admin: 07/03/18 14:20 Dose: 81 mg Cyanocobalamin (Vitamin B12 1000 Mcg Tab) 1,000 mcg PO DAILY [facility] Last Admin: 07/03/18 14:21 Dose: 1,000 mcg Levothyroxine Sodium (Synthroid) 100 mcg PO DAILY@0630 [facility] Last Admin: 07/03/18 06:03 Dose: Not Given Multivitamins/Vitamin C (Multi-Delyn Liquid) 5 ml PO DAILY [facility] Last Admin: 07/03/18 14:21 Dose: 5 ml - Labs Labs: 07/02/18 08:38 07/02/18 08:38 PT 10.9 SECONDS (9.7-12.2) 06/27/18 08:44 INR 1.0 06/27/18 08:44 APTT 52 SECONDS (21-34) H 06/27/18 08:44
--- NOTE | 2018-07-04 00:44 | CP.PCM.PN ---
Subjective - Date & Time of Evaluation Date of Evaluation: 07/03/18 Time of Evaluation: 02:00 - Subjective Subjective: seen and examined at bed side looking comfortable , waiting for cardic cl Objective - Vital Signs/Intake and Output Vital Signs (last 24 hours): Temp Pulse Resp BP Pulse Ox 98 F 86 20 104/68 95 07/03/18 17:27 07/03/18 17:31 07/03/18 17:27 07/03/18 17:27 07/03/18 17:27 Intake and Output: 07/03/18 07/04/18 18:59 06:59 Intake Total 480 300 Balance 480 300 - Medications Medications: Current Medications Acetaminophen (Tylenol 325mg Tab) 650 mg PO Q6 PRN PRN Reason: Headache Last Admin: 07/01/18 17:50 Dose: 650 mg Acetaminophen/Butalbital/Caffeine (Fioricet) 1 tab PO BID PRN PRN Reason: headache Last Admin: 07/03/18 21:23 Dose: 1 tab Ascorbic Acid (Vitamin C 250 Mg Tab) 250 mg PO DAILY [facility] Last Admin: 07/03/18 14:20 Dose: 250 mg Aspirin (Aspirin Chewable) 81 mg PO DAILY [facility] Last Admin: 07/03/18 14:20 Dose: 81 mg Cyanocobalamin (Vitamin B12 1000 Mcg Tab) 1,000 mcg PO DAILY [facility] Last Admin: 07/03/18 14:21 Dose: 1,000 mcg Levothyroxine Sodium (Synthroid) 100 mcg PO DAILY@0630 [facility] Last Admin: 07/03/18 06:03 Dose: Not Given Multivitamins/Vitamin C (Multi-Delyn Liquid) 5 ml PO DAILY [facility] Last Admin: 07/03/18 14:21 Dose: 5 ml - Labs Labs: 07/02/18 08:38 07/02/18 08:38 PT 10.9 SECONDS (9.7-12.2) 06/27/18 08:44 INR 1.0 06/27/18 08:44 APTT 52 SECONDS (21-34) H 06/27/18 08:44 Assessment and Plan (1) Exacerbation of multiple sclerosis Status: Acute (2) Dizziness Status: Acute (3) Near syncope Status: Acute (4) Weakness Status: Acute (5) Hypothyroid Status: Chronic
[2018-07-04 00:56] VITALS: BP 94/54; PULSE 70; TEMP 97.8
--- NOTE | 2018-07-04 04:02 | CARD ---
APPROVED REPORT Date of service: 07/03/2018 Protocol: LEXISCAN Test Type: LEXISCAN Test Indications: CP Medical History: CP Target HR: 161 bpm Resting ECG: NSR Resting Heart Rate: 77 bpm Resting Blood Pressure: 126/80mmHg submaximum (85%): 137 bpm TEST SUMMARY PREINFSNHYPERV.36:[id number]/80.0. INFUSIONDOSE 100:300.00.01.070/.0. [id number]/80.0. PROCEDURE Pharmacologic stress testing was performed using 0.4mg per 5ml of regadenoson given intravenously over 7-10 seconds. POST EXERCISE Reason for Termination: Protocol Completed Target HR: No Max HR: 70 bpm 70% of Maximum Predicted HR: 161 bpm Exercise duration: 00:30 min:sec, 0 Stage Exercise capacity: 1.0METs Max Blood Pressure: 126/80mmHg Blood Pressure response to exercise: normal resting BP - appropriate response Heart Rate response to exercise: appropriate Chest Pain: No, none Angina index: 0 Arrhythmia: No, none ST Change: No, none Deviation: 0 mm INTERPRETATION Stress EKG Conclusion: NEGATIVE LEXISCAN STRESS TEST NORMAL BP RESPONSE TO LEXISCAN NUCLEAR STUDIES TO BE READ SEPARATELY EXAM: Myocardial Perfusion STRESS/REST Imaging Protocol The imaging protocol used to acquire images was Stress Tc-99m/rest Tc-99m 1 day Stress Spect myocardial perfusion imaging was performed in supine position 45 minutes following the injection of 13.1 mCi of Tc-99 Myoview. Gated Rest Spect was performed 43 minutes after intravenous 31.8 mCi Tc-99 Myoview injection. The images were gated to evaluate regional wall motion and calculate ventricular ejection fraction.Images were reconstructed using backfilter projection method in short horizontal and verticle long axis. Spect slices were generated. RESTING DATA EDV61.89szPJ2.80L/min1/3 Pk. Filling Rate1.81EDV/sec LV Time to Pk. Filling Gvnr175.35msec ESV10.00mlMyocardial Yzcg349.00gLV Time to Pk. Ejection Riiv376.19msec Pk. Fill Rate4.48EDV/secAv. Heart Rate76.00bpm EF84.00%Pk. Emptying Rate4.55ESV/sec STRESS DATA EDV59.21psSR0.00L/min ESV5.00mlMyocardial Djgz638.00g Pk. Fill Rate4.21EDV/sec EF92.00%Pk. Emptying Rate4.69ESV/sec 1/3 Pk. Filling Rate2.32EDV/secRegional WT score at stress:0.00 LV Time to Pk. Filling Rate:122.51msecRegional WM score at stress:0.00 LV Time to Pk. Ejection Rate:243.45msecSummed WT score at stress:3.00 Av. Heart Rate73.00bpmSummed WM score at stress:0.00 LV Perf. Quant 17 Seg. SSS0.00 17 Seg. SRS0.00 17 Seg. SDS0.00 Stress Defect Extent (% LAD)0.00Rest Defect Extent (% LAD)0.00Rev. Defect Extent (% LAD)0.00 Stress Defect Extent (% LCX)0.00Rest Defect Extent (% LCX)0.00Rev. Defect Extent (% LCX)0.00 Stress Defect Extent (% RCA)0.00Rest Defect Extent (% RCA)0.00Rev. Defect Extent (% RCA)0.00 Stress Defect Extent (% JUSTA)0.00Rest Defect Extent (% JUSTA)0.00Rev. Defect Extent (% JUSTA)0.00 Other Information Quality:Good IMPRESSION Normal Myocardial Perfusion exercise stress study Left Ventricle LV Function:Left ventricle systolic function is normal. The Ejection Fraction is >55%. Metabolism/Perfusion There are no perfusion/metabolism defects. Conclusion 1. Normal Lexiscan Nuclear Stress Test. Normal EF
[2018-07-04 21:06] LABS: ST. LOUIS IgG <1:4; ST. LOUIS IgM <1:4; WESTERN EQUINE IgM <1:4
== END 2018-07-04 09:00 | disposition home or self-care (01) | DRG 13 ==
LOC: C.ER 07:53 → C.5S 09:27
PROVIDERS: ADMIT Internal Medicine; ATTEND Internal Medicine
PROC: 009U3ZX Drainage of Spinal Canal, Percutaneous Approach, Diagnostic (ICD-10-PCS; principal; 2018-06-27)
DX: G35 Multiple sclerosis (principal); I95.9 Hypotension, unspecified; R53.1 Weakness; R55 Syncope and collapse; R00.1 Bradycardia, unspecified; E03.9 Hypothyroidism, unspecified; G43.909 Migraine, unspecified, not intractable, without status migrainosus; D64.9 Anemia, unspecified; E78.00 Pure hypercholesterolemia, unspecified; Z86.73 Personal history of transient ischemic attack (TIA), and cerebral infarction without residual deficits; Z90.49 Acquired absence of other specified parts of digestive tract